=== PATIENT | male | born 1990 | race Caucasian/White ===

== ENCOUNTER 2021-06-24 11:28 | Inpatient (IN) | payer OTHER ==
[~2021-06-24] VITALS: Ht 180.3 cm; Wt 81.6 kg
--- NOTE | 2021-06-24 11:30 | NUR ---
Dr Smallwood at the bedside for MSE.
[2021-06-24] MEDS ORDERED: LORAZEPAM 2 MG/1 ML VIAL ONE (11:41)
[2021-06-24] MEDS ORDERED: levETIRAcetam IV 1,000 MG in IV DEXTROSE 5% 100 ML IV ONE (11:45)
[2021-06-24] MEDS ORDERED: IV NORMAL SALINE 1000 ML BAG IV ONE (11:45)
[2021-06-24] MEDS ORDERED: LORAZEPAM 2 MG/1 ML VIAL IV ONE (11:45)
[2021-06-24] MEDS ORDERED: levETIRAcetam 500 MG/5 ML VIAL IV ONE (11:53)
[2021-06-24 12:08] LABS: HEMATOCRIT 50.7 % (36.7-47.1); MEAN CORPUSCULAR HEMOGLOBIN 28.4 uug (23.8-33.4); MEAN CORPUSCULAR VOLUME 90.2 fL (73.0-96.2); PLATELET COUNT (AUTO) 305 K/uL (152-348)
[2021-06-24 12:24] LABS: ALANINE AMINOTRANSFERASE 31 U/L (16-63); ALKALINE PHOSPHATASE 99 U/L (50-136); ASPARTATE AMINOTRANSFERASE 29 U/L (15-37); BILIRUBIN,DIRECT 0.1 mg/dL (0.0-0.2); BILIRUBIN,TOTAL 0.2 mg/dL (0.2-1.0); CHLORIDE 101 mmol/L (98-107); CREATININE 1.3 mg/dL (0.6-1.3); GLUCOSE 196 mg/dL (74-106); POTASSIUM 4.2 mmol/L (3.5-5.1); TOTAL PROTEIN, SERUM 9.3 g/dL (6.4-8.2); UREA NITROGEN, BLOOD 17 mg/dL (7-18)
[2021-06-24 12:25] LABS: ETHANOL < 3 MG/DL (0-0)
[2021-06-24 12:26] LABS: CARBON DIOXIDE 9 mmol/L (21-32)
[2021-06-24 13:25] LABS: *AMPHETAMINE, URINE NEGATIVE (NEGATIVE); *CANNABINOID, URINE POSITIVE (NEGATIVE); *COCCAINE, URINE NEGATIVE (NEGATIVE); *OPIATE, URINE NEGATIVE (NEGATIVE); *PHENCYCLIDINE SCREEN,URINE NEGATIVE (NEGATIVE)
--- NOTE | 2021-06-24 15:03 | NUR ---
Patient is resting comfortably in bed with eyes closed, NAd noted. No more seizure acitivity so far.
--- NOTE | 2021-06-24 16:30 | NUR ---
RECEIVED PATIENT FOR ADMISSION 31 YEARS OLD MALE BY CANDIE FROM ED TO ROOM 302 WITH DX OF SEIZURES PLACED INTO BED FIXED AND MADE COMFORTABLE PATIENT IS ALERT OPENS EYES RESPONDS TO QUESTIONS ASKED VERY SLOWLY VERY WEAK OBEYS COMMANDS ON O2 BY NASAL CANULLA WILL CHECK SATURATION RIGHT FORE ARM WITH HEPLOCK INTACT NO SEIZURES AT THIS TIME ATTEMPTED TO ORIENT BUT PATIENT LOOKS SLEEPY SIDE RAILS PADDED CALL LIGHTS AND PERSONAL BELONGINGS ARE WITHIN EASY REACH AT THIS TIME WILL OBSERVE.
--- NOTE | 2021-06-24 17:00 | NUR ---
CALL RECEIVED FROM DR DE LA CRUZ STATED TO HAVE PHARMACY CHECK PATIENTS HOME MEDICATION AND DOCUMENT THEM CALLED PATIENTS BROTHER JOSE SPOKE WITH HIM STATED THAT PATIENT ONLY TAKES [place] DID NOT KNOW THE DOSE BUT STATED THAT HIS PHARMACY IS [facility] SO I CALLED [facility] AND NOTIIFIED SWAPNIL STATED WILL CALL THE [facility] AND WILL ENTER IN THE HOME MEDS.
[2021-06-24] MEDS ORDERED: ZOLP10TA2 PO (17:38)
[2021-06-24] MEDS ORDERED: CLON1TAB12 PO (17:39)
[2021-06-24] MEDS ORDERED: MIRT-93 PO (17:39)
[2021-06-24] MEDS ORDERED: LORA-259 PO (17:39)
[2021-06-24] MEDS ORDERED: LEVE1000 PO (17:39)
--- NOTE | 2021-06-24 17:50 | NUR ---
PATIENT GOT OUT OF BED AND URINATED ON THE FLOOR ASSISTED BACK INTO BED HE IS ALERT AWAKE BUT IS INCOHERENT MADE COMFORTABLE WILL CONTINUE TO OBSERVE.
[2021-06-24 18:15] VITALS: BP 127/58
[2021-06-24] MEDS ORDERED: LORAZEPAM 2 MG/1 ML VIAL IV PRN (18:15)
[2021-06-24] MEDS ORDERED: MAGNESIUM HYDROXIDE 30 ML LIQUID UDC PO PRN (18:15)
[2021-06-24] MEDS ORDERED: MORPHINE SULFATE 2 MG/1 ML DISP.SYRIN IV PRN (18:15)
[2021-06-24] MEDS ORDERED: Medication Not On Formulary EA (Zolpidem Tartrate (Ambien) 10 MG) PO PRN (18:15)
--- NOTE | 2021-06-24 19:30 | NUR ---
Received pt in no acute distress. Iv intact. Pt follows command but pt feels sleepy. Pt alert and orientedx2. Pt feels sleepy. Safety and comfort provided. Will continue to monitor.
[2021-06-24 20:00] VITALS: BP 137/70
[2021-06-24] MEDS ORDERED: Medication Not On Formulary EA (Levetiracetam (Keppra) 1,000 MG) PO SCH (21:00)
[2021-06-24] MEDS ORDERED: ZOLPIDEM 5 MG TABLET PO PRN (21:00)
[2021-06-24] MEDS: MIRTAZAPINE 15 MG TABLET PO SCH (22:00)
[2021-06-24] MEDS: levETIRAcetam 500 MG TABLET PO SCH (22:00)
[2021-06-24] MEDS: DOCUSATE SODIUM 100 MG CAPSULE PO SCH (22:01)
[2021-06-25] VITALS: BP 140/55
[2021-06-25 04:00] VITALS: BP 137/62
--- NOTE | 2021-06-25 05:44 | NUR ---
Pt in no acute distress. Pt slept intermittently. Pt voiding well. Prescribed medication given and pt tolerated it well. safety and comfort provided. Iv intact. No seizure noted. All needs are met. Will endorse to incoming nurse for continuity of care.
[2021-06-25] MEDS: PANTOPRAZOLE SODIUM 40 MG TABLET.DR PO SCH (06:19)
--- NOTE | 2021-06-25 06:19 | NUR ---
Pt refused his Protonix medication. Pt stable. Will endorse to incoming nurse.
[2021-06-25 06:47] LABS: HEMATOCRIT 45.9 % (36.7-47.1); MEAN CORPUSCULAR HEMOGLOBIN 28.3 uug (23.8-33.4); MEAN CORPUSCULAR VOLUME 85.2 fL (73.0-96.2); PLATELET COUNT (AUTO) 231 K/uL (152-348)
--- NOTE | 2021-06-25 07:20 | NUR ---
PATIENT IS IN BED AWAKE ALERT RESPONDS WHEN SPOKEN TO BUT VERY SLOW AND AT TIMES INCOHERENT ON O2 AT 2L/M BY NASAL CANULA WITH NO S/S IF SOB NO SEIZURE ACTIVITY AT THIS TIME SEIZURE PRECAUTIONS IN PROGRESS.CALL LIGHTS AND PERSONAL BELONGINGS ARE WITHIN EASY REACH WILL CONTINUE TO OBSERVE.
[2021-06-25 07:24] LABS: BILIRUBIN,TOTAL 0.3 mg/dL (0.2-1.0); CREATININE 1.1 mg/dL (0.6-1.3); MAGNESIUM 2.6 mg/dL (1.8-2.4); PHOSPHOROUS 5.3 mg/dL (2.5-4.9); POTASSIUM 4.5 mmol/L (3.5-5.1); TOTAL PROTEIN, SERUM 8.6 g/dL (6.4-8.2)
--- NOTE | 2021-06-25 07:30 | NUR ---
PATIENT SEEN AND EXAMINED BY DR VALDEZ WITH NO NEW ORDERS AT THIS TIME
[2021-06-25] MEDS: levETIRAcetam 500 MG TABLET PO SCH ×2 (08:48→20:03)
[2021-06-25 11:46] VITALS: BP 117/68
[2021-06-25] MEDS: ACETAMINOPHEN 325 MG TABLET PO PRN ×2 (12:50→18:26)
--- NOTE | 2021-06-25 12:51 | NUR ---
REFUSING TO EAT DRINKING ADEQUATE ALREADY FINISHED 800 ML OF H2O TODAY ATTEMTED TO FEED HIM BUT HE REFUSED BUT STATED THAT HE HAS A HEADACHE MEDICATED WITH TYLENOL ORDERED WILL OBSERVE.
[2021-06-25 15:50] LABS: THYROID STIMULATING HORMONE 0.111 mIU/mL (0.358-3.740)
[2021-06-25 16:00] VITALS: BP 123/73
--- NOTE | 2021-06-25 16:00 | NUR ---
TEMP AT THIS TIME IS 99.5 PATIENT ENCOURAGED TO DRINKS MUCH COOL LIQUIDS HE CAN WILL CONTINUE TO OBSERVE.
--- NOTE | 2021-06-25 16:30 | NUR ---
DR BUSTOS HERE TO SEE PATIENT WITH NO NEW ORDERS AT THIS TIME.
--- NOTE | 2021-06-25 18:25 | NUR ---
PATIENT MEDICATED WITH TYLENOL FOR GENERALISED ACHES AND PAIN NO SEIZURE ACTIVITY AT THIS TIME
[2021-06-25 20:00] VITALS: BP 129/69
[2021-06-25] MEDS: MIRTAZAPINE 15 MG TABLET PO SCH (20:03)
[2021-06-25] MEDS: DOCUSATE SODIUM 100 MG CAPSULE PO SCH (20:06)
[2021-06-25] MEDS: LORAZEPAM 2 MG/1 ML VIAL IV PRN (20:24)
[2021-06-25] MEDS: ONDANSETRON 4 MG/2 ML VIAL IV PRN (20:28)
[2021-06-25 23:58] VITALS: BP 83/64
--- NOTE | 2021-06-26 04:52 | NUR ---
Slept throughout the night. Denies pain or SOB. C/o some anxiety at the beginning of shift, Ativan given, tolerated well. No seizure activity noted. Will endorse to day shift.
[2021-06-26] MEDS: PANTOPRAZOLE SODIUM 40 MG TABLET.DR PO SCH (06:30)
[2021-06-26 06:34] LABS: CREATININE 1.1 mg/dL (0.6-1.3); POTASSIUM 4.2 mmol/L (3.5-5.1)
[2021-06-26 06:35] LABS: HEMATOCRIT 44.5 % (36.7-47.1); MEAN CORPUSCULAR HEMOGLOBIN 28.1 uug (23.8-33.4); MEAN CORPUSCULAR VOLUME 83.8 fL (73.0-96.2); PLATELET COUNT (AUTO) 212 K/uL (152-348)
--- NOTE | 2021-06-26 07:31 | NUR ---
Alert and oriented x3 No acute distress. Denies pain or sob. No infiltration noted on iv site. Comfortable. Bed low and locked siderails up x2. seizure precautions observed at all times. Call light in reach.
[2021-06-26] MEDS: LORAZEPAM 2 MG/1 ML VIAL IV PRN (07:59)
[2021-06-26] MEDS: ONDANSETRON 4 MG/2 ML VIAL IV PRN (08:05)
[2021-06-26] MEDS: levETIRAcetam 500 MG TABLET PO SCH (08:05)
--- NOTE | 2021-06-26 09:00 | NUR ---
Patient for discharge and agreeable to plan stated the doctor has already spoken to him this morning. No complaints at this time.
[2021-06-26 09:47] VITALS: BP 124/75
--- NOTE | 2021-06-26 11:07 | NUR ---
Discharge instructions relayed to the patient and he verbalized understanding. Patient also called his pharmacy and confirmed his medications.
--- NOTE | 2021-06-26 11:30 | NUR ---
Received call from Dr. Suarez to increase Keppra to 1500mg q12 hrs. Patient is made aware and agreed. Called [facility] [phone] and spoke to [facility] pharmacist and confirmed. Dr. Osborn is aware.
--- NOTE | 2021-06-26 13:04 | NUR ---
Discharged to home with all belongings in stable condition. Picked up by his brother in private car.
== END 2021-06-26 13:05 | disposition home or self-care (01) | DRG 53 ==
LOC: ER 11:28 → TELE3 15:15 → MEDSURG3 06-26 08:18
PROVIDERS: ADMIT Internal Medicine; ATTEND Family Medicine
DX: G40.909 Epilepsy, unspecified, not intractable, without status epilepticus (principal); J96.01 Acute respiratory failure with hypoxia; G93.40 Encephalopathy, unspecified; Z87.11 Personal history of peptic ulcer disease; Z20.822 Contact with and (suspected) exposure to COVID-19; F41.9 Anxiety disorder, unspecified; D72.828 Other elevated white blood cell count; F12.90 Cannabis use, unspecified, uncomplicated; E87.2 Acidosis; W34.00XS Accidental discharge from unspecified firearms or gun, sequela; R73.9 Hyperglycemia, unspecified; Z91.19 Patient's noncompliance with other medical treatment and regimen
CPT/HCPCS: 36415; 70450; 71045; 83735; 84100; 84443; 85025; 93005; A4663; C1758; G0378; G0480; J1953; J2060; J2405; J3490; J7030

== ENCOUNTER 2023-04-22 10:02 | Emergency (ER) | payer OTHER ==
[~2023-04-22] VITALS: Ht 180.3 cm; Wt 68.0 kg
[~2023-04-22 10:02] MED LIST: CLON1TAB12 PO; LEVE1000 PO; LORA-259 PO; MIRT-93 PO; ZOLP10TA2 PO
[2023-04-22] MEDS ORDERED: IV NORMAL SALINE 1000 ML BAG IV ONE (10:15)
[2023-04-22] MEDS ORDERED: POTASSIUM BICARBONATE/CIT AC 25 MEQ TABLET.EFF PO ONE (10:15)
[2023-04-22 10:30] LABS: BASOPHILS # (AUTO) 0.1 K/UL (0.0-0.2); BASOPHILS % (AUTO) 0.5 % (0.0-2.0); DIFFERENTIAL COMMENT 1; EOSINOPHILS % (AUTO) 0.4 % (0.0-7.0); HEMATOCRIT 47.6 % (36.7-47.1); HEMOGLOBIN 14.9 g/dL (12.5-16.3); LYMPHOCYTES # (AUTO) 2.8 K/uL (0.8-4.8); LYMPHOCYTES % (AUTO) 20.7 % (20.5-51.5); MEAN CORPUSCULAR HEMOGLOBIN 28.5 uug (23.8-33.4); MEAN CORPUSCULAR HGB CONC 31 g/dL (32.5-36.3); MEAN CORPUSCULAR VOLUME 90.7 fL (73.0-96.2); MONOCYTES # (AUTO) 0.5 K/uL (0.1-1.30); MONOCYTES % (AUTO) 3.4 % (0.0-11.0); NEUTROPHILS # (AUTO) 10.2 K/uL (1.8-8.9); PLATELET COUNT (AUTO) 282 K/uL (152-348); RED BLOOD CELL COUNT(AUTO) 5.24 MIL/uL (4.06-5.63); RED CELL DISTRIBUTION WIDTH 14.8 % (12.1-16.2); WHITE BLOOD COUNT (AUTO) 13.7 K/uL (3.6-10.2)
[2023-04-22] MEDS ORDERED: MAGNESIUM SULFATE/D5W 100 ML ONE ×2 (10:46→11:55)
[2023-04-22] MEDS ORDERED: POTASSIUM BICARBONATE/CIT AC 25 MEQ TABLET.EFF ONE (10:46)
[2023-04-22] MEDS: MAGNESIUM SULFATE/D5W 100 ML IV SCH ×3 (10:47→12:15)
[2023-04-22] MEDS ORDERED: ONDANSETRON 4 MG/2 ML VIAL ONE (10:58)
[2023-04-22] MEDS ORDERED: ONDANSETRON 4 MG/2 ML VIAL IV ONE (11:00)
[2023-04-22 11:25] LABS: CREATININE 1.3 mg/dL (0.6-1.3)
[2023-04-22 12:42] LABS: SITE, VBG VBG - N/A; VBG AaDO2 64.9 mmHg; VBG BASE EXCESS -2.2 mmol/L (-3-3); VBG HCO3 23.9 mmol/L (22-27); VBG MetHb 0.2 % (0.0-0.5); VBG O2HB 63.8 %; VBG PCO2 45.7 mmHg (41.0-54.0); VBG PH 7.336 (7.310-7.450); VBG PO2 < 40.5 mmHg (25.0-35.0); VBG TOTAL HEMOGLOBIN 14.9 G/dL (12.0-16.0)
[2023-04-22] MEDS ORDERED: ONDA4TAB5 PO (13:09)
[2023-04-22 13:12] LABS: LACTIC ACID 2.6 mmol/L (0.4-2.0)
[2023-04-22] MEDS ORDERED: ONDANSETRON ODT 4 MG TAB.RAPDIS ONE (13:19)
[2023-04-22] MEDS ORDERED: ONDANSETRON ODT 4 MG TAB.RAPDIS SL ONE (13:30)
[2023-04-22 13:49] VITALS: BP 104/70; O2SAT 97
== END 2023-04-22 13:52 | disposition home or self-care (01) ==
LOC: ER 10:02
DX: G40.909 Epilepsy, unspecified, not intractable, without status epilepticus (principal); E87.20 Acidosis, unspecified; R11.2 Nausea with vomiting, unspecified; F41.9 Anxiety disorder, unspecified; F32.A Depression, unspecified; Z79.899 Other long term (current) drug therapy
CPT/HCPCS: 36415; 36600; 83605; 83735; 85025; A4606; A4663; J2405; J3475; J7040; Q0162